=== PATIENT | female | born 1980 | race Caucasian/White ===

== ENCOUNTER 2016-11-28 10:18 | Emergency (ER) | payer MEDICAID ==
[2016-11-28 10:36] VITALS: BP 141/68; PULSE 79; RESP 16; TEMP 98.2; O2SAT 99
--- NOTE | 2016-11-28 11:19 | UCPHY ---
H & P Patient Type: New Chief Complaint Nursing Narrative: RLQ PAIN RADIATES ACROSS ABD. SUDDEN ONSET. LASTED ~30MIN. NO SYMPTOMS NOW. UNABLE TO GET APPT WITH PMD. SIMILIAR S/S COUPLE OF MOS AGO. RECENT PAP DONE LAST MONTH. CONCERNED ABOUT OVARIAN CYSTS. WANTS US. HPI/ROS: CHIEF COMPLAINT: Abdominal pain HISTORY OF PRESENT ILLNESS: This is a 36-year-old female who presents with the acute onset of sharp right lower quadrant abdominal pain that began following a yoga class. No fall or trauma during the yoga class. The pain lasted approximately 30 minutes and resolved spontaneously. She is currently pain- free. She believes that she has had an episode of an over ruptured ovarian cyst in the past and is concerned that this might be the same. She is currently menstruating. She denies any recent fever, vomiting, diarrhea, dysuria, or urinary frequency. She has not had vaginal discharge. REVIEW OF SYSTEMS: A ten point review of systems was performed and is negative with the exception of the items mentioned in the HPI. Source: Patient Exam Limitations: No limitations - Personal History LMP (Females 10-55): Now Current Tetanus/Diphtheria Vaccine: Yes Current Tetanus Diphtheria and Acellular Pertussis (TDAP): Unsure - Medical/Surgical History Hx Asthma: Yes Hx Chronic Respiratory Disease: No Hx Diabetes: No Hx Cardiac Disease: No Hx Renal Disease: No Hx Cirrhosis: No Hx Alcoholism: No Hx HIV/AIDS: No Hx Splenectomy or Spleen Trauma: No Other PMH: MISCARRIAGE 07-20-14 - Family History Significant Family History: No pertinent family hx - Social History Smoking Status: Never smoked Additional Social History: She is here with her fiance and their 2 children. They own a coffee shop. - Physical Exam Exam: General Appearance: Alert. Vital signs reviewed. Initial blood pressure 141/ 68. Eyes: Pupils equal and round, no conjunctival injection, no discharge. Anicteric. ENT, Mouth: Mucous membranes are moist, no oropharyngeal erythema or edema. Neck: No lymphadenopathy, supple. Respiratory: Lungs are clear to auscultation; no wheezes, rales, or rhonchi. Cardiovascular: Regular rate and rhythm; no murmur, rub, or gallop. Gastrointestinal: Abdomen is soft and nontender, no masses or organomegaly, bowel sounds normal. Skin: Warm and dry, no rashes on exposed skin, normal color. Back: Nontender to palpation over the thoracolumbar spine. No CVAT. Extremities: No lower extremity edema, no calf tenderness or swelling. Neurological: Alert and oriented. Moving all four extremities easily and equally. Psychiatric: Normal affect. Constitutional: Initial Vital Signs Temperature (C) 36.8 C 11/28/16 10:25 Heart Rate 79 11/28/16 10:25 Respiratory Rate 16 11/28/16 10:25 Blood Pressure 141/68 H 11/28/16 10:25 O2 Sat (%) 99 11/28/16 10:25 O2 Delivery Mode Room Air Allergies/Adverse Reactions: No Known Allergies Allergy (Unverified 01/20/16 11:32) Home Medications: Medication Instructions Recorded NK [No Known Home Meds] 01/20/16 Medical Decision Making ED Course/Re-evaluation: 30 minutes of right lower quadrant abdominal pain. The pain has resolved and has not returned. Physical examination is normal. I do not suspect pen decided us. Ovarian cyst is certainly a possibility but, if so, I do not feel that further evaluation is needed as she is pain-free. Ovarian torsion with detorsion is a possibility. Again, she is pain-free and I do not think that further evaluation is needed. She agrees. No urinary symptoms this I do not think that this is a urinary tract infection. She is not constipated. She will follow up with her air transportation provider/PCP. We discussed the danger signs that should prompt her to return. She left without receiving her written discharge instructions. Departure - Departure Disposition: Home, Routine, Self-Care Clinical Impression: Lower abdominal pain Condition: Good Instructions: Acute Abdominal Pain (ED) Additional Instructions: I do not know what caused your right lower abdominal pain today. As we discussed, it is certainly possible that you ruptured and ovarian cyst. Since you are feeling better now I do not recommend ultrasound at this point. However , if things change, if you develop fever, vomiting, severe persistent pain, any new or concerning symptoms please return for another evaluation. Follow up with your air transportation provider, Dr. Espana, as planned. Referrals: [place],. [Primary Care Provider] - As per Instructions - PQRS PQRS Measurement: Does not apply.
== END 2016-11-28 11:47 | disposition home or self-care (01) ==
LOC: CED 10:18
DX: R10.31 Right lower quadrant pain (principal)

== ENCOUNTER 2017-12-17 18:03 | Observation (INO) | payer MEDICAID ==
--- NOTE | 2017-12-17 18:45 | EDPHY ---
H & P Stated Complaint: 38 wks with cough r earache congestion/st Time Seen by Provider: 12/17/17 18:11 HPI/ROS: CHIEF COMPLAINT: Right earache, the sore throat, and cough HISTORY OF PRESENT ILLNESS: This is a 37-year-old EDC 01/03/2018 who presents with 4 days of sore throat and cough. She has been getting progressively worse over that time period. Today she notes right ear pain. She has had watery drainage from her right eye with some redness. Her children have had similar illnesses. She has not been aware of fever. She has not taken any medication other than throat lozenges. She is not having chest pain and does not feel short of breath. No abdominal pain. She tells me that she has been having Eudora Baumann contractions. REVIEW OF SYSTEMS: A ten point review of systems was performed and is negative with the exception of the items mentioned in the HPI. Past medical history: None other than childhood asthma Past surgical history: None Social history: She lives with her and 2 daughters. No tobacco or alcohol. General Appearance: Alert. Vital signs reviewed. Blood pressure 140/75. Eyes: Pupils equal and round, no conjunctival injection, no discharge. Anicteric. ENT, Mouth: Mucous membranes are moist, moderate oropharyngeal erythema without swelling or exudates. Uvula midline. Right external auditory canal erythematous, right tympanic membrane erythematous and dull. Neck: Anterior cervical lymphadenopathy, supple/no meningeal signs. Respiratory: Lungs are clear to auscultation; no wheezes, rales, or rhonchi. Cardiovascular: Regular rate and rhythm; no murmur, rub, or gallop. Gastrointestinal: Abdomen is gravid, no masses or organomegaly, bowel sounds normal. Skin: Warm and dry, no rashes on exposed skin, normal color. Back: Nontender to palpation over the thoracolumbar spine. No CVAT. Extremities: No lower extremity edema, no calf tenderness or swelling. Neurological: Alert and oriented. Moving all four extremities easily and equally. Psychiatric: Normal affect. - Personal History LMP (Females 10-55): Current Tetanus Diphtheria and Acellular Pertussis (TDAP): Yes - Medical/Surgical History Hx Asthma: Yes Hx Chronic Respiratory Disease: No Hx Diabetes: No Hx Cardiac Disease: No Hx Renal Disease: No Hx Cirrhosis: No Hx Alcoholism: No Hx HIV/AIDS: No Hx Splenectomy or Spleen Trauma: No Other PMH: MISCARRIAGE 07-20-14 - Social History Smoking Status: Never smoked Constitutional: Initial Vital Signs Temperature (C) 36.8 C 12/17/17 18:05 Heart Rate 79 12/17/17 18:05 Respiratory Rate 20 12/17/17 18:05 Blood Pressure 140/75 H 12/17/17 18:05 O2 Sat (%) 96 12/17/17 18:05 O2 Delivery Mode Room Air Allergies/Adverse Reactions: No Known Allergies Allergy (Verified 12/17/17 18:05) Home Medications: Medication Instructions Recorded NK [No Known Home Meds] 01/20/16 Medical Decision Making ED Course/Re-evaluation: Influenza PCR negative. Strep testing negative. heart tones 176 at the time of my evaluation, 200 per nursing staff. Spoke with Dr. Damaris Martinez. She initially had planned to arrange monitoring in the emergency department but this was amended and the patient was discharged from the ED to labor and delivery for monitoring. Right otitis, conjunctivitis, likely viral syndrome. I doubt that antibiotics would be beneficial in this situation. There is no role for Tamiflu. An IV was started and normal saline was infusing at the time that she was taken to labor and delivery for monitoring. Differential Diagnosis: Considered a differential diagnosis that includes but is not limited to pharyngitis, influenza, pneumonia, otitis media, urinary tract infection. - Data Points Laboratory Results: 12/17/17 12/17/17 12/17/17 Unknown 18:30 18:15 Nasal Influenza A PCR NEGATIVE FOR FLU A (NEGATIVE) Nasal Influenza B PCR NEGATIVE FOR FLU B (NEGATIVE) Group A Strep Screen NEGATIVE (NEGATIVE) Group A Strep DNA Pending Medications Given: Discontinued Medications Sodium Chloride (Ns) 1,000 mls @ 0 mls/hr IV EDNOW ONE; Wide Open PRN Reason: Protocol Stop: 12/17/17 19:39 Last Admin: 12/17/17 19:40 Dose: 1,000 mls Departure - Departure Clinical Impression: Conjunctivitis Qualifiers: Conjunctivitis type: acute Acute conjunctivitis type: viral Laterality: right Qualified Code(s): B30.9 - Viral conjunctivitis, unspecified Otitis media Qualifiers: Otitis media type: suppurative Chronicity: acute Laterality: right Recurrence: not specified as recurrent Spontaneous tympanic membrane rupture: without spontaneous rupture Qualified Code(s): H66.001 - Acute suppurative otitis media without spontaneous rupture of ear drum, right ear Condition: Good Instructions: Viral Syndrome (ED), Conjunctivitis (ED), Ear Infection (ED) Referrals: Damaris Martinez MD [Medical Doctor] - As per Instructions
[2017-12-17] MEDS ORDERED: NS 1,000 ML IV ONE (19:38)
[2017-12-17 20:11] VITALS: BP 148/83
== END 2017-12-17 21:25 | disposition home or self-care (01) ==
LOC: FLD 20:09
PROVIDERS: ADMIT Obstetrics & Gynecology; ATTEND Obstetrics & Gynecology
DX: O99.89 Other specified diseases and conditions complicating pregnancy, childbirth and the puerperium (principal); O98.513 Other viral diseases complicating pregnancy, third trimester; B30.9 Viral conjunctivitis, unspecified; H66.001 Acute suppurative otitis media without spontaneous rupture of ear drum, right ear; J45.909 Unspecified asthma, uncomplicated; E86.9 Volume depletion, unspecified; Z3A.38 38 weeks gestation of pregnancy
CPT/HCPCS: 59025; 96360; 99284; G0378

== ENCOUNTER 2017-12-24 16:56 | Emergency (ER) | payer MEDICAID ==
[2017-12-24] MEDS ORDERED: fentaNYL 100 MCG/2 ML INJ ONE (17:19)
[2017-12-24] MEDS ORDERED: fentaNYL 100 MCG/2 ML INJ IVP ONE (17:19)
--- NOTE | 2017-12-24 17:31 | EDPHY ---
H & P Time Seen by Provider: 12/24/17 17:11 HPI/ROS: CHIEF COMPLAINT: Severe pleuritic chest pain HISTORY OF PRESENT ILLNESS: This is a 37-year-old female, 9 months , who reports that she has had a cold for the last 3 weeks. Symptoms of runny nose, sore throat, and congestion have gradually cleared that her cough has remained. She states earlier today, several hours ago, while coughing, she developed a severe discomfort in the left lower chest. She also is wondering if her baby has moved the as she seems to have significant discomfort in the left upper abdomen. She is 9 months . She reports she has been having intermittent contractions and feels that she has lost her mucus plug. She is . This has been normal thus far, [facility], and she is to deliver at [facility]. Patient denies a fever. No vaginal bleeding. Her water has not been broken. No history of PEs or DVTs. Patient reports she continues to feel the baby move. No fever, chills, shortness of breath, palpitations, vomiting, diarrhea, urinary complaints, headache, lightheadedness. REVIEW OF SYSTEMS: Aside from elements discussed in the HPI, a comprehensive 10-point review of systems was reviewed and is negative. PAST MEDICAL HISTORY: . SOCIAL HISTORY: Nonsmoker. VITAL SIGNS Reviewed by me. GENERAL: Well-developed, well-nourished, seems very uncomfortable. Abrupt, severe discomfort in the lower chest when taking a deep breath or moving in certain positions. Tearful. HEENT: Atraumatic. Eyes: No icterus, no injection. Mouth: moist mucous membranes. No erythema or lesions. Neck: supple with no adenopathy. LUNGS: Clear to auscultation. Deep respirations elicits significant discomfort in the lower chest and upper abdomen. CARDIAC: Regular rate and rhythm, no rubs, murmurs or gallops. ABDOMEN: Gravid uterus. Tenderness palpation in the left upper quadrant. Uterus is firm throughout. BACK: Mild left CVA tenderness. EXTREMITIES: No trauma. No edema. Range of motion is normal throughout. NEURO: Alert and oriented, grossly nonfocal. SKIN: Warm and dry, no rash. PSYCHIATRIC: Normal mentation, no agitation. Smoking Status: Never smoked Constitutional: Initial Vital Signs Temperature (C) 36.7 C 12/24/17 17:10 Heart Rate 87 12/24/17 17:10 Respiratory Rate 18 12/24/17 17:10 Blood Pressure 155/89 H 12/24/17 17:10 O2 Sat (%) 96 12/24/17 17:10 O2 Delivery Mode Room Air Allergies/Adverse Reactions: No Known Allergies Allergy (Verified 12/17/17 18:05) Home Medications: Medication Instructions Recorded NK [No Known Home Meds] 01/20/16 Medical Decision Making ED Course/Re-evaluation: Initial blood pressure was quite elevated. O2 sat 96%. Doppler heart tones in the 150s. Bedside ultrasound also performed demonstrating positive activity. Patient IV placed and received 25 mcg of fentanyl. Patient's course discussed with labor and delivery at [facility]. Believe the patient will be better served at [facility] where further evaluation of the status can be performed since she is reporting intermittent contractions. Patient is also quite concerned given her significant discomfort reports that she feels she would be unable to labor with this much discomfort. Differential for the patient's lower chest pain was considered including but not limited to a rib fracture, rib separation, pneumonia, pulmonary embolism. Differential for the patient's left upper quadrant discomfort included muscle strain, related discomfort, or labor. Patient's fiancee will drive her to [facility]. She was significantly improved after a small dose of fentanyl. Her course was discussed with [facility] triage nurse on Labor and delivery. They are expecting her arrival. - Data Points Medications Given: Discontinued Medications Fentanyl (Sublimaze) 75 mcg IVP EDNOW ONE Stop: 12/24/17 17:20 Last Admin: 12/24/17 17:32 Dose: 25 mcg Departure - Departure Disposition: Home, Routine, Self-Care Clinical Impression: Left sided chest pain, Abdominal pain, acute, left upper quadrant, Term Condition: Good Instructions: Chest Pain (ED) Additional Instructions: Please proceed directly to [facility]. You should proceed to the labor and delivery area for further evaluation. Referrals: NONE *PRIMARY CARE P,. [Primary Care Provider] - As per Instructions
--- NOTE | 2017-12-24 18:42 | EDPHY ---
H & P Time Seen by Provider: 12/24/17 17:11 HPI/ROS: HPI 38 weeks , left chest wall pain. 37-year-old female at 38 weeks, presents to the emergency department with complaint of left anterior lower chest pain. She describes this as sharp and aching and worse when she takes a deep breath in. She reports onset at 2:30 p.m. this afternoon. She states that it came on spontaneously. No history of trauma. She has had an upper respiratory infection and reports that 2 days ago she was coughing and felt a popping sensation in this area but had no pain at that time. ROS: Constitutional: No fever, no chills. No weakness. Eyes: No discharge. No changes in vision. ENT: No sore throat. No nasal congestion or rhinorrhea. Respiratory: No cough. No shortness of breath. Cardiac: No chest pain, no palpitations. Gastrointestinal: No abdominal pain, no vomiting, no diarrhea. Genitourinary: No hematuria. No dysuria or increased frequency with urination. Musculoskeletal: No back pain. No neck pain. No myalgias or arthralgias. Skin: No rashes. Neurological: No headache. No focal weakness or altered sensation. Past medical history: Social history: Physical Exam: General Appearance: Alert, no distress. This patient is responding to questions appropriately and in full sentences. This patient appears well- hydrated and well-nourished. Eyes: Pupils equal and round no pallor or injection. No lid edema, erythema or injection. Respiratory: There are no retractions, lungs are clear to auscultation with good air movement bilaterally. Chest wall is stable on AP and lateral palpation. She does have some left-sided reproducible pain mid clavicular line at the costal margin. No soft tissue changes associated. No edema, no erythema , no warmth, no ecchymosis. Cardiovascular: Regular rate and rhythm. No murmur. Gastrointestinal: Approximately 38 weeks gravid, no other masses, bowel sounds normal. No focal tenderness at McBurney's point. No Mendez sign. Neurological: Motor sensory function is grossly intact. Cranial nerves are normal. Gait is normal. Skin: Warm and dry, no rashes. Musculoskeletal: Neck is supple and nontender. Extremities are symmetrical. All joints range without pain or impingement. Psychiatric: No agitation. No depression. Database: EKG: Imaging: Chest x-ray PA and lateral; the cardiac mediastinal silhouette is unremarkable. No evidence of infiltrate or pneumothorax. No acute cardiopulmonary disease process noted. Interpreted by me. Procedures: Emergency department course: Vital signs reviewed. She is no longer hypertensive on 2 separate blood pressure reads. Labor and delivery nurse came down to the emergency department and started her on tocolytic monitoring. I spoke with Dr. Malia Eason and discussed workup. Patient consents to a chest x-ray and blood work. She refuses a EKG. 8:00 p.m., patient re-evaluated. She is eating currently. She is sitting upright. She appears comfortable. Results of her diagnostic workup in the emergency department discussed with her. Plan to admit her for observation on L &D discussed. She and her consent. 8:05 p.m., spoke with MACK Metz on-call. She will admit this patient for observation on Labor and delivery. The patient's remaining emergency department course under my care has been uneventful. The patient was admitted in stable and improved condition. Differential Diagnosis: The differential diagnosis on this patient includes but is not limited to costal chondritis, rib contusion, nondisplaced rib fracture. Pneumonia, pneumothorax, pulmonary embolism, acute coronary syndrome, preeclampsia unlikely. This represents a partial list of diagnoses considered. These considerations are based on history, physical exam, past history, reassessment and diagnostic testing. Smoking Status: Never smoked Constitutional: Initial Vital Signs Temperature (C) 36.7 C 12/24/17 17:10 Heart Rate 87 12/24/17 17:10 Respiratory Rate 18 12/24/17 17:10 Blood Pressure 155/89 H 12/24/17 17:10 O2 Sat (%) 96 12/24/17 17:10 O2 Delivery Mode Room Air Allergies/Adverse Reactions: No Known Allergies Allergy (Verified 12/17/17 18:05) Home Medications: Medication Instructions Recorded NK [No Known Home Meds] 01/20/16 Medical Decision Making - Data Points Laboratory Results: Laboratory Results 12/24/17 18:59 12/24/17 18:59 Medications Given: Discontinued Medications Fentanyl (Sublimaze) 75 mcg IVP EDNOW ONE Stop: 12/24/17 17:20 Last Admin: 12/24/17 17:32 Dose: 25 mcg Departure - Departure Disposition: Home, Routine, Self-Care Clinical Impression: Left sided chest pain, Abdominal pain, acute, left upper quadrant, Term Condition: Good Instructions: Chest Wall Pain (ED) Additional Instructions: Please proceed directly to [facility]. You should proceed to the labor and delivery area for further evaluation. Referrals: Malia Eason MD [Medical Doctor] -
[2017-12-24 19:08] LABS: PLATELET COUNT 178 10^3/uL (150-400)
[2017-12-24 19:17] LABS: INR 0.88 (0.83-1.16); PROTIME(PATIENT) 12.2 SEC (12.0-15.0)
[2017-12-24 21:47] VITALS: BP 135/82; PULSE 86; RESP 18; TEMP 97.9; O2SAT 95
== END 2017-12-24 21:50 | disposition home or self-care (01) ==
LOC: CED 17:40 → UNDOADMOB 20:02
DX: O99.89 Other specified diseases and conditions complicating pregnancy, childbirth and the puerperium (principal); R07.9 Chest pain, unspecified; O26.893 Other specified pregnancy related conditions, third trimester; R10.12 Left upper quadrant pain; Z3A.38 38 weeks gestation of pregnancy
CPT/HCPCS: 96374; J3010

== ENCOUNTER 2017-12-28 12:10 | Inpatient (IN) | payer MEDICAID ==
[2017-12-28] MEDS ORDERED: TERBUTALINE SULFATE 1 MG/ML VIAL IV PRN (12:39)
[2017-12-28] MEDS ORDERED: MISOPROSTOL 200 MCG TAB PR PRN (12:39)
[2017-12-28] MEDS ORDERED: OLIVE OIL 118 ML BTL MISC PRN (12:39)
[2017-12-28] MEDS ORDERED: OXYTOCIN 20 UNIT in LR 1,000 ML IV PRN (12:39)
[2017-12-28] MEDS ORDERED: EPSOM SALT 454 GM TP PRN (12:39)
[2017-12-28] MEDS ORDERED: IBUPROFEN 600 MG TAB PO PRN (12:39)
--- NOTE | 2017-12-28 13:18 | OBPROG ---
Labor Progress Note Assessment/Plan: Assessment: Plan: - SVE Dilation (cm): 3, 4 Effacement (%): 75 Station: -1 Membranes: Intact - Contraction Pattern Assessment Current Contraction Pattern: Irregular - FHR Assessment Cavazos FHR (bpm): 135 FHR Pattern Variability: Moderate FHR Category: 1 - Physical Exam General Appearance: WD/WN, alert, no apparent distress Respiratory: lungs clear, normal breath sounds Abdomen: normal bowel sounds Extremities: normal range of motion, Madelin's sign (negative bilaterally) DTR- Lower Extremities: Knee (R): 1+, Knee (L): 1+ Skin: normal color, warm/dry Neuro/Psych: no motor/sensory deficits, alert, normal mood/affect, oriented x 3 ICD10 Worksheet Patient Problems: Problems Problem Status Onset Conjunctivitis Acute Otitis media Acute (spontaneous vaginal delivery) Acute
[2017-12-28 13:21] LABS: PLATELET COUNT 218 10^3/uL (150-400)
--- NOTE | 2017-12-28 13:23 | OBPROG ---
Labor Progress Note Assessment/Plan: Assessment: continuous monitoring pitocin per protocol exam 3-4/75/-1 cephalic us oligohydramnios of [address] rosana magdaleno to labor and delivery for IOL patient and family in agreement with poc Plan: 12/28/17 13:21 - SVE Membranes: Intact - Contraction Pattern Assessment Current Contraction Pattern: Irregular - AP Antepartum Course: ama hx anxiety recent uri brhao rib in the ER for observation week of 08/2018 oligohydramnios of 4 today 12/28/2017 12/28/17 13:19 Oxytocin Orders Assessment - Pre-Induction/Augmentation Assessment Gestational Age: 39 week(s) and 1 day(s) ICD10 Worksheet Patient Problems: Problems Problem Status Onset Conjunctivitis Acute Otitis media Acute (spontaneous vaginal delivery) Acute
[2017-12-28] MEDS ORDERED: OXYTOCIN 30 UNIT in NS 500 ML IV SCH (13:30)
--- NOTE | 2017-12-28 13:56 | GHP ---
[f rep st] HISTORY AND PHYSICAL DATE OF ADMISSION: 12/28/2017 HISTORY OF PRESENT ILLNESS: The patient is a 37-year-old, 4, para 2, with an EDC of 01/04/20 18, that gives her a gestational age of 39 and 1/7 weeks, who comes in to [facility] s today for a routine appointment and is found to be measuring small for dates. With ultrasound, CALISTA was 4. Recommendation for induction of labor presented to the patient and family and acceptance of plan of care. The patient has been routinely seen with [facility] since 9 weeks and 1 day. MEDICAL HISTORY: Mild pelvic cramping, nausea, history of asthma, albuterol p.r.n. flares with illne ss and allergens, history of anxiety, no medications. SURGICAL HISTORY: [place] teeth and LASIX. HISTORY: Patient is AMA. GYNECOLOGICAL HISTORY: Previous OCP use, [facility]. In 2003 colposcopy. PAST HISTORY: In 05/2012, a female, 5 pounds 13 ounces at 40 and 1/7 weeks, 24 hour labor, vaginal delivery, epidural. In 06/2014, was a missed AB with Cytotec. In 07/2015, a male at 6 poun ds, 40 and 2/7 weeks, 17 hours of labor, vaginal delivery with an epidural. PHYSICAL ASSESSMENT: GENERAL: Patient is awake, alert, oriented x3. LUNGS: Clear bilaterally. AB DOMEN: Bowel sounds are positive in all 4 quadrants. NEUROLOGIC: DTRs are 1+ bilaterally with no c lonus. Homans sign is negative bilaterally. LABS: Patient is A positive, antibody negative. RPR is nonreactive. Rubella is immune. Hepatitis is negative. HIV is negative. Urine culture is negative. 1 hour GTT was within normal limits. PLAN OF CARE: 1. Patient is GBS negative. 2. Pitocin per protocol. 3. AROM when able. 4. Consult Dr. Malia Eason on plan of care. The patient in agreement with plan of care. /[id number]/MODL
[2017-12-28] MEDS ORDERED: AMMONIA AROMATIC 1 EACH AMP IH ONE (14:56)
[2017-12-28] MEDS ORDERED: TERBUTALINE SULFATE 1 MG/ML VIAL ONE (14:56)
[2017-12-28] MEDS ORDERED: LIDOCAINE 1% 300 MG/30 ML SDV ONE (14:56)
[2017-12-28] MEDS ORDERED: OLIVE OIL 118 ML BTL ONE (14:56)
[2017-12-28] MEDS ORDERED: OXYTOCIN 10 UNIT/ML VIAL ONE (14:56)
[2017-12-28] MEDS ORDERED: MISOPROSTOL 200 MCG TAB ONE (14:56)
--- NOTE | 2017-12-28 16:04 | OBPROG ---
Labor Progress Note Assessment/Plan: Assessment: 37 y/o @ 39 weeks IOL secondary to oligo @ 4 Plan: Pitocin running and AROM now. Active labor management, pain control per pt request. 12/28/17 16:05 Subjective/Intrapartum Course: 12/28/17 15:59 Pt is feeling mild cramping and contractions. She is ready for IOL now and feeling good. She was hoping to avoid an epidural but is realistic about pitocin and IOL. Objective: 12/28/17 12:50 Patient ABO/Rh A POSITIVE 12/28/17 12:50 - SVE Dilation (cm): 4 Effacement (%): 75 Station: -2 Membranes: AROM, Intact Amniotic Fluid Color: Clear - Contraction Pattern Assessment Current Contraction Pattern: Irregular - FHR Assessment Cavazos FHR (bpm): 140 FHR Pattern Variability: Moderate FHR Category: 1 - Procedures Non-surgical Procedures: Amniotomy - AP Antepartum Course: ama hx anxiety recent URI, and broken rib in the ER for observation week of 12/24/2017 oligohydramnios of 4 today 12/28/2017 12/28/17 13:19 12/28/17 16:04 Oxytocin Orders Assessment - Pre-Induction/Augmentation Assessment Gestational Age: 39 week(s) and 1 day(s) ICD10 Worksheet Patient Problems: Problems Problem Status Onset Conjunctivitis Acute Otitis media Acute (spontaneous vaginal delivery) Acute
--- NOTE | 2017-12-28 19:10 | OBPROG ---
Labor Progress Note Assessment/Plan: Assessment: 37 y/o @ 39 weeks IOL secondary to oligo @ 4 Plan: Pitocin running and AROM now. Active labor management, pain control per pt request. 12/28/17 16:05 Subjective/Intrapartum Course: 12/28/17 15:59 Pt is feeling mild cramping and contractions. She is ready for IOL now and feeling good. She was hoping to avoid an epidural but is realistic about pitocin and IOL. 12/28/17 19:09 Pt is feeling uncomfortable with contractions building in intensity. + bloody show Objective: 12/28/17 12:50 Patient ABO/Rh A POSITIVE 12/28/17 12:50 - SVE Dilation (cm): 5 Effacement (%): 80 Station: -2 Membranes: AROM, Intact Amniotic Fluid Color: Clear - Contraction Pattern Assessment Current Contraction Pattern: Irregular - Procedures Non-surgical Procedures: Amniotomy - AP Antepartum Course: ama hx anxiety recent URI, and broken rib in the ER for observation week of 12/24/2017 oligohydramnios of 4 today 12/28/2017 12/28/17 13:19 12/28/17 16:04 Oxytocin Orders Assessment - Pre-Induction/Augmentation Assessment Gestational Age: 39 week(s) and 1 day(s) ICD10 Worksheet Patient Problems: Problems Problem Status Onset Conjunctivitis Acute Otitis media Acute (spontaneous vaginal delivery) Acute
--- NOTE | 2017-12-28 20:40 | OBPROG ---
Labor Progress Note Assessment/Plan: Assessment: 37 y/o @ 39 weeks IOL secondary to oligo @ 4 Plan: Pitocin running and AROM now. Active labor management, pt now desires epidural. We will call anesthesia. 12/28/17 16:05 12/28/17 20:38 Subjective/Intrapartum Course: 12/28/17 15:59 Pt is feeling mild cramping and contractions. She is ready for IOL now and feeling good. She was hoping to avoid an epidural but is realistic about pitocin and IOL. 12/28/17 19:09 Pt is feeling uncomfortable with contractions building in intensity. + bloody show 12/28/17 20:37 Pt is doing well, feeling strong contractions and having blood show. Objective: 12/28/17 12:50 Patient ABO/Rh A POSITIVE 12/28/17 12:50 - SVE Dilation (cm): 5 Effacement (%): 80 Station: -1 Membranes: AROM, Intact Amniotic Fluid Color: Clear - Contraction Pattern Assessment Current Contraction Pattern: Regular (Q 3), Irregular - FHR Assessment Cavazos FHR (bpm): 140 FHR Pattern Variability: Moderate FHR Category: 1 - Procedures Non-surgical Procedures: Amniotomy - AP Antepartum Course: ama hx anxiety recent URI, and broken rib in the ER for observation week of 12/24/2017 oligohydramnios of 4 today 12/28/2017 12/28/17 13:19 12/28/17 16:04 Oxytocin Orders Assessment - Pre-Induction/Augmentation Assessment Gestational Age: 39 week(s) and 1 day(s) ICD10 Worksheet Patient Problems: Problems Problem Status Onset Conjunctivitis Acute Otitis media Acute (spontaneous vaginal delivery) Acute
[2017-12-28] MEDS ORDERED: ONDANSETRON 4 MG/2 ML VIAL IVP PRN (20:45)
[2017-12-28] MEDS ORDERED: PHENYLEPHRINE HCL 100 MCG/ML SYR IVP PRN (20:45)
[2017-12-28] MEDS ORDERED: NALOXONE HCL 0.4 MG/ML INJ IVP PRN (20:45)
[2017-12-28] MEDS: LR 1,000 ML IV PRN ×3 (20:45→21:20)
[2017-12-28] MEDS ORDERED: fentaNYL 100 MCG/2 ML INJ ONE (20:54)
[2017-12-28] MEDS ORDERED: PHENYLEPHRINE HCL 100 MCG/ML SYR ONE (20:54)
[2017-12-28] MEDS ORDERED: BUPIVACAINE 0.25% 30 ML SDV ONE (20:54)
[2017-12-28] MEDS ORDERED: fentaNYL 200 MCG, BUPIVACAINE 0.5% 20 ML in NS 100 ML EP SCH (21:00)
[2017-12-28] MEDS ORDERED: LR 500 ML IV SCH (21:00)
[2017-12-28] MEDS ORDERED: fentaNYL 2MCG/ML/BUP 0.1% RTU 100 ML EP SCH (21:00)
--- NOTE | 2017-12-28 21:34 | PREANESOB ---
Obstetric Pre-Anesthesia Info - General Info Proposed Procedure: labor : 4 Para: 2 JENNY: 01/03/18 Gestational Age: 39 week(s) and 1 day(s) - Info Status: Full Term Monitors: External FHR Pattern: Reassuring - Labor Status Cervical Dilation per last OB SVE: 5 Station per last OB SVE: -1 Amniotic Fluid Color: Clear Pitocin: In Use Magnesium Sulfate in Use: No Indications for Labor Analgesia: Augmentation of Labor, Pain Control Labor Epidural: Proposed Anesthesia ROS: mild asthma with occasional albuterol use, otherwise neg Allergies/Adverse Reactions: Allergy/AdvReac Type Severity Reaction Status Date / Time No Known Allergies Allergy Verified 12/17/17 18:05 Home Medications: Medication Instructions Recorded Vit27&Calcium/Iron/FA 12/28/17 [] valACYclovir [Valtrex (*)] 12/28/17 Visit Medications: Generic Name Dose Route Start Last Admin Trade Name Freq PRN Reason Stop Dose Admin Diphenhydramine HCl 25 - 50 mg 12/28/17 20:45 Benadryl Injection IVP 06/26/18 20:44 Q6HRS PRN Itching Ephedrine Sulfate 10 mg 12/28/17 20:45 Ephedrine Sulfate IV 06/26/18 20:44 .Q2M PRN Hypotension Lactated Ringer's 1,000 mls @ 0 mls/hr 12/28/17 12:39 12/28/17 21:20 Lr IV 12/29/17 12:38 1,000 mls PRN PRN Administration SEE PROTOCOL CONDITIONS Protocol Per Protocol Oxytocin 20 unit/ Lactated 1,002 mls @ 150 mls/hr 12/28/17 12:39 Ringer's IV PRN PRN Post- bleeding Oxytocin 30 unit/ Sodium 503 mls @ 0 mls/hr 12/28/17 13:30 12/28/17 15:12 Chloride IV 06/26/18 13:29 503 mls CONT NIMISHA Administration Per Protocol Lactated Ringer's 500 mls @ 0 mls/hr 12/28/17 21:00 Lr IV 06/26/18 20:59 CONT NIMISHA As Directed Fentanyl 200 mcg/ Bupivacaine 100 mls @ 0 mls/hr 12/28/17 21:00 HCl 20 ml/ Sodium Chloride EP 03/25/18 20:59 CONT NIMISHA Protocol As Directed Ibuprofen 600 mg 12/28/17 12:39 Motrin PO 06/26/18 12:38 Q6HRS PRN post , inflammation Magnesium Sulfate 454 gm 12/28/17 12:39 Epsom Salt TP 06/26/18 12:38 Q1H PRN perineal discomfort Misoprostol 800 - 1,000 mcg 12/28/17 12:39 Cytotec VA ONCE PRN Vaginal Atony/Bleeding Naloxone HCl 0.4 mg 12/28/17 20:45 Narcan IVP 06/26/18 20:44 PRN PRN Respiratory depression Orwell Oil 118 ml 12/28/17 12:39 Sweet Oil MISC 06/26/18 12:38 ONCE PRN perineal massage Ondansetron HCl 4 mg 12/28/17 20:45 Zofran IVP 12/29/17 20:44 Q4HRS PRN Nausea/Vomiting, Can't Take PO Phenylephrine HCl 100 mcg 12/28/17 20:45 Neosynephrine IVP 06/26/18 20:44 .Q2M PRN Hypotension Terbutaline Sulfate 0.25 mg 12/28/17 12:39 Brethine IV 06/26/18 12:38 ONCE PRN Tachysystole Discontinued Medications Generic Name Dose Route Start Last Admin Trade Name Freq PRN Reason Stop Dose Admin Ammonia (Aromatic Spirit) Confirm 12/28/17 14:56 Ammonia Aromatic Administered 12/28/17 14:57 Dose 1 each IH .STK-MED ONE Bupivacaine HCl Confirm 12/28/17 20:54 Sensorcaine 0.25% Sdv Administered 12/28/17 20:55 Dose 30 ml .ROUTE .STK-MED ONE Fentanyl Confirm 12/28/17 20:54 Sublimaze Administered 12/28/17 20:55 Dose 100 mcg .ROUTE .STK-MED ONE Lidocaine HCl Confirm 12/28/17 14:56 Lidocaine Hcl 1% Administered 12/28/17 14:57 Dose 300 mg .ROUTE .STK-MED ONE Misoprostol Confirm 12/28/17 14:56 Cytotec Administered 12/28/17 14:57 Dose 1,000 mcg .ROUTE .STK-MED ONE Orwell Oil Confirm 12/28/17 14:56 Sweet Oil Administered 12/28/17 14:57 Dose 118 ml .ROUTE .STK-MED ONE Oxytocin Confirm 12/28/17 14:56 Pitocin Administered 12/28/17 14:57 Dose 40 unit .ROUTE .STK-MED ONE Phenylephrine HCl Confirm 12/28/17 20:54 Neosynephrine Administered 12/28/17 20:55 Dose 1,000 mcg .ROUTE .STK-MED ONE Terbutaline Sulfate Confirm 12/28/17 14:56 Brethine Administered 12/28/17 14:57 Dose 1 mg .ROUTE .STK-MED ONE - Anesthesia History Response to Local Anesthetics: Normal Anesthesia & Operative History: No Prior Problems Family Anesthesia History: Negative - Social History Substance Use/Abuse: Denies - Vital Signs Height/Weight (Nursing): Height 167.64 cm Weight 61.689 kg - Focused Exam Neck exam: FROM Mallampati Score: Class 2 Pulmonary: no respiratory distress Cardiovascular: regular rate and rhythym Labs: 12/28/17 12:50 Patient ABO/Rh A POSITIVE 12/28/17 12:50 - Plan Consent Signed and on Chart: Yes Patient/Guardian Understands and Agrees to Plan: Yes Urgent/Emergent Case: Sunita cota completed preop but documented later for safe timely pt care
[2017-12-28] MEDS ORDERED: LIDO/EPI 2% **for epidural** 20 ML SDV ONE (22:14)
[2017-12-29] MEDS ORDERED: DOCUSATE SODIUM 100 MG CAP PO PRN (00:26)
[2017-12-29] MEDS ORDERED: HYDROCODONE/APAP 5/325 TAB PO PRN (00:26)
[2017-12-29] MEDS ORDERED: ACETAMINOPHEN 325 MG TAB PO PRN (00:26)
[2017-12-29] MEDS ORDERED: HYDROCORTISONE 0.5% CREAM TP PRN (00:26)
[2017-12-29] MEDS ORDERED: SIMETHICONE 80 MG TAB CHEW PO PRN (00:26)
--- NOTE | 2017-12-29 00:30 | OBDEL ---
Info Type: Vaginal Presentation at Delivery: Vertex L&D Analgesia/Anesthesia Type: Epidural GBS+: No Intrapartum Medications: Generic Name Dose Route Start Last Admin Trade Name Freq PRN Reason Stop Dose Admin Lactated Ringer's 1,000 mls @ 0 mls/hr 12/28/17 12:39 12/28/17 21:20 Lr IV 12/29/17 12:38 1,000 mls PRN PRN Administration SEE PROTOCOL CONDITIONS Protocol Per Protocol Oxytocin 30 unit/ Sodium 503 mls @ 0 mls/hr 12/28/17 13:30 12/28/17 15:12 Chloride IV 06/26/18 13:29 503 mls CONT NIMISHA Administration Per Protocol - Hospital Course Intrapartum: 12/28/17 15:59 Pt is feeling mild cramping and contractions. She is ready for IOL now and feeling good. She was hoping to avoid an epidural but is realistic about pitocin and IOL. 12/28/17 19:09 Pt is feeling uncomfortable with contractions building in intensity. + bloody show 12/28/17 20:37 Pt is doing well, feeling strong contractions and having blood show. Indications for Delivery: Oligohydramnios Vaginal Delivery - Delivery Provider Delivery Physician/CNM: Malia Eason - Labor and Delivery Onset of Contractions Date: 12/28/17 Onset of Contractions Time: 19:06 Onset of Contractions Type: Induced Rupture of Membranes Date: 12/28/17 Rupture of Membranes Time: 15:55 Rupture of Membranes Type: Artificial Amniotic Fluid Color: Clear Dilation Complete Date: 12/28/17 Dilation Complete Time: 23:30 Placenta Delivery Date: 12/29/17 Placenta Delivery Time: 00:06 Total Hours of Labor: 5 Non-surgical Procedures: Amniotomy Laceration: Other (Specify) (left labial) Repair: 3-0, Vicryl Vaginal Sponge Count Correct: Yes Vaginal Needle Count Correct: Yes Vaginal Sweep Performed: Yes EBL: 200 Delivery Events: None - Medications Labor Augmentation/Induction Methods Used: Pitocin Labor Augmentation/Induction Indication: Other (Specify) (oligohydramnion) Data JENNY: 01/03/18 Gestational Age: 39 week(s) and 2 day(s) Cavazos Delivery Date: 12/28/17 Delivery Time: 23:55 Sex of Infant: Female Score (1 Min): 8 Score (5 Min): 9 ICD10 Worksheet Patient Problems: Problems Problem Status Onset Conjunctivitis Acute Otitis media Acute (spontaneous vaginal delivery) Acute
--- NOTE | 2017-12-29 00:35 | POSTANESTH ---
Post Anesthetic Evaluation Cardiovascular Status: Normal, Stable Respiratory Status: Normal, Stable Level of Consciousness/Mental Status: Can Participate in Eval Pain Control: Adequate, Prn Tx Ordered Nausea/Vomiting Control: Adequate, Prn Tx Ordered Complications Possibly Related to Anesthesia: None Noted (epidural resolving normally)
--- NOTE | 2017-12-29 09:23 | OBPP ---
Progress Note Assessment/Plan: Assessment: 37 yo now 3 s/p at 2355 12/28/17. Doing well. Plan: Continue routine cares. Anticipate dc home tomorrow. 12/29/17 09:18 Subjective/ Course: 12/29/17 09:23 Doing well, ambulating and voiding without difficulty. Normal amount of lochia. going well. Objective: 12/28/17 12:50 Patient ABO/Rh A POSITIVE 12/28/17 12:50 Temp Pulse Resp BP Pulse Ox 36.9 C 66 18 113/61 93 12/29/17 04:31 12/29/17 04:31 12/29/17 04:31 12/29/17 04:31 12/29/17 04:31 gen - pleasant female, NAD CV-RRR chest - CTAB abd - soft, NT, fundus firm at 4cm below umbilicus ext - no calf tenderness, trace edema Uterine Position/Fundal Height: Umbilicus -3 Uterine Tone: Firm
--- NOTE | 2017-12-29 11:57 | PDMN ---
Medical Necessity Medical necessity: Pt meets IP criteria per MD; admit for labor & delivery; per H&P & order 12/28/17
[2017-12-29] MEDS: valACYclovir 500 MG TAB PO SCH ×2 (12:02→19:33)
[2017-12-30 08:14] VITALS: BP 100/62; PULSE 60; RESP 16; TEMP 97.5; O2SAT 95
--- NOTE | 2017-12-30 09:19 | OBPP ---
Progress Note Assessment/Plan: Assessment: nipples intact well pain well managed ff@u scant rubra lochia voiding without difficulty Plan:discharge to home with instructions fu 4 weeks and 6 weeks , pain management, pelvic rest, rest, depression, bleeding pattern ss infection, contraception, ok with poc 12/28/17 13:21 12/30/17 09:16 Subjective/ Course: 12/29/17 09:23 Doing well, ambulating and voiding without difficulty. Normal amount of lochia. going well. 12/30/17 09:16 Doing well denies difficulties Objective: 12/28/17 12:50 Patient ABO/Rh A POSITIVE 12/28/17 12:50 Temp Pulse Resp BP Pulse Ox 36.4 C 60 16 100/62 95 12/30/17 08:00 12/30/17 08:00 12/30/17 08:00 12/30/17 08:00 12/30/17 08:00 Uterine Position/Fundal Height: At Umbilicus Uterine Tone: Firm Physical Exam - Physical Exam General Appearance: WD/WN, alert, no apparent distress Abdomen: other (ff@u, scant rubra lochia) Extremities: normal range of motion, Madelin's sign (negative homens sign bilaterally) DTR- Lower Extremities: Knee (R): 1+, Knee (L): 1+ (no clonus) Skin: normal color, warm/dry Neuro/Psych: no motor/sensory deficits, alert, normal mood/affect, oriented x 3
== END 2017-12-30 10:15 | disposition home or self-care (01) | DRG 775 ==
LOC: FLD 12:10 → FOB 12-29 02:09
PROVIDERS: ADMIT Obstetrics & Gynecology; ATTEND Obstetrics & Gynecology
DX: O41.03X0 Oligohydramnios, third trimester, not applicable or unspecified (principal); O70.0 First degree perineal laceration during delivery; Z3A.39 39 weeks gestation of pregnancy; Z37.0 Single live birth
CPT/HCPCS: J2370; J2590; J3010; J3105